=== PATIENT | female | born 1950 | race Caucasian/White ===

== ENCOUNTER → 2023-05-26 10:26 | Outpatient (REF) | payer MEDICARE, SELFPAY | LOC: WDC 10:26 | PROVIDERS: ATTENDING PHYSICIAN Physician Assistant Medical | DX: Z12.31 Encounter for screening mammogram for malignant neoplasm of breast (principal) | CPT/HCPCS: 77063; 77067 ==

== ENCOUNTER → 2023-06-08 13:12 | Outpatient (REF) | payer MEDICARE, SELFPAY | LOC: RAD 13:12 | PROVIDERS: ATTENDING PHYSICIAN Physician Assistant Medical | DX: E03.9 Hypothyroidism, unspecified (principal); M54.2 Cervicalgia | CPT/HCPCS: 76536 ==

== ENCOUNTER → 2023-06-19 14:27 | Outpatient (REF) | payer MEDICARE, SELFPAY | LOC: RAD 14:27 | PROVIDERS: ATTENDING PHYSICIAN Surgery; FAMILY PHYSICIAN Physician Assistant Medical | DX: K43.2 Incisional hernia without obstruction or gangrene (principal) | CPT/HCPCS: 74177; Q9967 ==

== ENCOUNTER 2023-07-13 06:18 | Day surgery (SDC) | payer MEDICARE, SELFPAY ==
[2023-06-25 08:54] VITALS: BMI 29.5
[2023-06-25 10:24] LABS: Hematocrit 43.9 % (37.0-47.0); Hemoglobin 15.1 g/dL (12.0-16.0); Mean Corp Hgb Conc. 34.4 g/dL (33.0-37.0); Mean Corpuscular Hgb 30.8 pg (27.0-31.0); Mean Corpuscular Volume 89.4 fL (81.0-99.0); Mean Platelet Volume 10.5 fL (7.4-10.4); Platelet Count 234 10^3/uL (130-400); Red Blood Cell Count 4.91 10^6/uL (4.20-5.40); Red Cell Dist. Width 13.2 % (11.5-14.5); White Blood Cell Count 7.1 10^3/uL (4.8-10.8)
[2023-06-25 10:59] LABS: Blood Urea Nitrogen 13 mg/dl (7-17); Calcium 10.2 mg/dl (8.4-10.2); Carbon Dioxide 30 mmol/L (22-30); Chloride 101 mmol/L (98-107); Estimated Creatinine Clearance 69 ml/min; Glucose 93 mg/dl (70-99); Potassium 4.7 mmol/L (3.5-5.1); Sodium 140 mmol/L (135-145); eGFR > 60.00
[2023-07-13] VITALS (8 sets, daily range): BP systolic 106–162; BP diastolic 63–96; BMI 29.5
[2023-07-13] MEDS: TYLENOL 1000 MG PO (11:07)
[2023-07-13] MEDS: NORMOSOL-R 1000 IV (11:08)
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
[2023-07-13] MEDS: ZOFRAN 4 MG IV (13:30)
--- NOTE | 2023-07-13 13:34 | SUR.PHASEI ---
sudden onset of nausea, vss, color pale, Zofran 4mg IV given, alcohol pad by nose for noxious stimuli for nausea
[2023-07-13] MEDS: SUBLIMAZE 50 MCG IV (13:43)
== END 2023-07-13 15:38 | disposition home or self-care (01) ==
LOC: SDS 06:18
PROVIDERS: ATTENDING PHYSICIAN Surgery; FAMILY PHYSICIAN Physician Assistant Medical
DX: K43.2 Incisional hernia without obstruction or gangrene (principal)
CPT/HCPCS: 49591; 36415; 80048; 85027; 93005; C1713; J1335

== ENCOUNTER → 2023-09-07 08:11 | Outpatient (REF) | payer MEDICARE, SELFPAY | LOC: RAD 08:11 | PROVIDERS: ATTENDING PHYSICIAN Surgery; FAMILY PHYSICIAN Physician Assistant Medical | DX: K43.2 Incisional hernia without obstruction or gangrene (principal) | CPT/HCPCS: 74177; Q9967 ==

== ENCOUNTER → 2023-09-27 12:16 | Outpatient (REF) | payer MEDICARE, SELFPAY | LOC: HWRAD 12:16 | PROVIDERS: ATTENDING PHYSICIAN Physician Assistant Medical | DX: G44.52 New daily persistent headache (NDPH) (principal) | CPT/HCPCS: 70450 ==

== ENCOUNTER → 2024-10-07 15:20 | Outpatient (REF) | payer MEDICARE, SELFPAY | LOC: RAD 15:20 | PROVIDERS: ATTENDING PHYSICIAN Physician Assistant Medical | DX: M25.562 Pain in left knee (principal) | CPT/HCPCS: 73564 ==

== ENCOUNTER → 2024-10-11 13:04 | Outpatient (REF) | payer MEDICARE, SELFPAY | LOC: WDC 13:04 | PROVIDERS: ATTENDING PHYSICIAN Physician Assistant Medical | DX: Z12.31 Encounter for screening mammogram for malignant neoplasm of breast (principal) | CPT/HCPCS: 77063; 77067 ==

== ENCOUNTER → 2024-10-29 07:09 | Outpatient (REF) | payer MEDICARE, SELFPAY | LOC: RAD 07:09 | PROVIDERS: ATTENDING PHYSICIAN Surgery; FAMILY PHYSICIAN Physician Assistant Medical | DX: K43.2 Incisional hernia without obstruction or gangrene (principal) | CPT/HCPCS: 74177; Q9967 ==

== ENCOUNTER 2025-01-07 06:30 | Day surgery (SDC) | payer MEDICARE, SELFPAY ==
[2024-12-25 13:06] VITALS: BMI 31.0
[2025-01-07] VITALS (13 sets, daily range): BP systolic 89–138; BP diastolic 47–80; BMI 31.0
[2025-01-07] MEDS: TYLENOL 1000 MG PO (10:11)
[2025-01-07] MEDS: NORMOSOL-R/PLASMALYTE-A 1000 IV (10:12)
[2025-01-07] MEDS: ZOFRAN 4 MG IV (12:31)
[2025-01-07] MEDS: DILAUDID 0.25 MG IV (12:35)
[2025-01-07] MEDS: COMPAZINE 5 MG IV (12:45)
[2025-01-07] MEDS: DILAUDID 0.5 MG IV (12:49)
== END 2025-01-07 15:37 | disposition home or self-care (01) ==
LOC: SDS 06:30
PROVIDERS: ATTENDING PHYSICIAN Surgery; FAMILY PHYSICIAN Physician Assistant Medical
DX: K43.2 Incisional hernia without obstruction or gangrene (principal); K66.0 Peritoneal adhesions (postprocedural) (postinfection)
CPT/HCPCS: 49591; 93005